=== PATIENT | male | born 1990 | race Caucasian/White ===

== ENCOUNTER 2018-11-15 10:05 | Emergency (ER) | payer BC, OTHER ==
[~2018-11-15] VITALS: Ht 177.8 cm; Wt 84.0 kg
[2018-11-15 10:07] VITALS: BP 142/79
--- NOTE | 2018-11-15 10:38 | NUR ---
PATIENT FELL YESTERDAY EVENING, FELL DOWN 6-07 STEPS AND LANDED ON LEFT SIDE, BUT RIGHT SIDE HURTS: FOCAL TENDERNESS OVER LUMBAR SPINE, RIGHT WORSE THAN LEFT, SITTING BETTTER THAN STANDING
[2018-11-15] MEDS ORDERED: CYCL-1 PO (11:05)
[2018-11-15] MEDS ORDERED: IBUP-1986 PO (11:05)
== END 2018-11-15 11:30 | disposition home or self-care (01) ==
LOC: ER 10:06
DX: M54.5 Low back pain (principal)
CPT/HCPCS: 72100; 99284